=== PATIENT | male | born 1985 | race Caucasian/White ===

== ENCOUNTER 2018-03-24 14:20 | Emergency (ER) | payer MEDICAID ==
[~2018-03-24] VITALS: Ht 180.3 cm; Wt 70.0 kg
[2018-03-24 15:00] LABS: BASOPHILS # (AUTO) 0.03 x10^3/uL (0-0.1); BASOPHILS % (AUTO) 0 % (0-1); EOSINOPHILS # (AUTO) 0.09 x10^3/uL (0-0.4); EOSINOPHILS % (AUTO) 1 % (1-7); LYMPHOCYTES # (AUTO) 2.46 x10^3/uL (1-3.4); LYMPHOCYTES % (AUTO) 22 % (22-44); MD NO; MEAN CORPUSCULAR HEMOGLOBIN 32.2 pg (27.5-34.5); MEAN CORPUSCULAR HGB CONC 34.5 g/dL (33.2-36.2); MEAN CORPUSCULAR VOLUME 93.3 fL (81-97); MEAN PLATELET VOLUME 8.1 fL (7.4-10.4); MONOCYTES # (AUTO) 0.87 x10^3/uL (0.2-0.8); MONOCYTES % (AUTO) 8 % (2-9); NEUTROPHILS # (AUTO) 7.54 x10^3/uL (1.8-6.8); NEUTROPHILS % (AUTO) 69 % (42-75); PLATELET COUNT 281 x10^3/uL (130-400); RED BLOOD COUNT 4.87 x10^6/uL (4.38-5.82); RED CELL DISTRIBUTION WIDTH 15.2 % (9.4-14.8)
[2018-03-24 15:10] LABS: ALANINE AMINOTRANSFERASE 34 U/L (12-78); ANION GAP 4 mmol/L (5-15); CALCIUM 9.1 mg/dL (8.5-10.1); CHLORIDE 108 mmol/L (98-107); CREATININE 0.88 mg/dL (0.7-1.3)
[2018-03-24 15:12] LABS: ACETAMINOPHEN < 2 mcg/mL (10-30); ALKALINE PHOSPHATASE 63 U/L (45-117); BILIRUBIN,TOTAL 0.7 mg/dL (0.2-1.0); SALICYLATE LEVEL 4.8 mg/dL (2.8-20.0); TOTAL PROTEIN 7.4 g/dL (6.4-8.2)
[2018-03-24 16:02] LABS: AMPHETAMINE SCREEN, URINE Negative (Negative); BARBITURATE SCREEN, URINE Negative (Negative); BENZODIAZEPINE SCREEN, URINE Negative (Negative); CANNABINOID SCREEN, URINE Positive (Negative); COCAINE SCREEN, URINE Negative (Negative); METHADONE SCREEN, URINE Negative (Negative); OPIATE SCREEN, URINE Negative (Negative)
[2018-03-24] MEDS ORDERED: OLANZAPINE 10 MG TABLET ONE (17:48)
[2018-03-24] MEDS ORDERED: OLANZAPINE 10 MG TABLET PO SCH (18:00)
[2018-03-24] MEDS ORDERED: ZIPRASIDONE 20 MG INJ IM ONE ×2 (21:49→22:00)
[2018-03-24] MEDS ORDERED: LORazepam 2 MG/ML, 1ML ONE (23:44)
[2018-03-25] MEDS ORDERED: LORazepam 2 MG/ML, 1ML IM ONE
[2018-03-25] MEDS ORDERED: LORazepam 1MG TABLET ONE ×2 (08:27→09:27)
[2018-03-25] MEDS ORDERED: LORazepam 1MG TABLET PO ONE (09:30)
[2018-03-25 10:51] VITALS: BP 118/93
[2018-03-25] MEDS ORDERED: ZIPRASIDONE 20 MG INJ IM ONE ×2 (11:00→11:01)
[2018-03-25] MEDS ORDERED: ZIPRASIDONE 20MG CAPSULE ONE (11:38)
[2018-03-25] MEDS ORDERED: ZIPRASIDONE 20MG CAPSULE PO SCH (12:00)
== END 2018-03-25 16:45 | disposition home or self-care (01) ==
LOC: ED 16:06 → EDIP 18:59 → UNDOADMOB 18:59 → ED 03-25 16:45 → UNDODISOB 03-25 16:45
DX: R45.851 Suicidal ideations (principal)
CPT/HCPCS: 36415; 80053; 80307; 80329; 85025; 96372; 99284; J2060; J3486; G0378; G0480